=== PATIENT | male | born 1955 | race Two or more races ===

== ENCOUNTER 2021-03-31 09:50 | Emergency (ER) | payer OTHER ==
[~2021-03-31] VITALS: Ht 172.7 cm; Wt 86.2 kg
--- NOTE | 2021-03-31 10:11 | NUR ---
BI SELF LT ARM LIMITED ROM AND PAIN OF 910 S/P FALLING ON LT ARM 03/12 DIDNT SEE DOCTOR NOR XRAY DONE. RATES PAIN 03/01. NO APPARENT DEFORMITY NOTED. DENIES NUMBNESS/TINGLING IN THE EXTREMITY. WILL CONTINUE TO MONITOR THE PATIENT.
--- NOTE | 2021-03-31 10:12 | NUR ---
DR GERARD AT THE BEDSIDE
--- NOTE | 2021-03-31 10:18 | NUR ---
X-RAY TECH AT THE BEDSIDE
[2021-03-31] MEDS ORDERED: HYDR-3980 PO (10:40)
--- NOTE | 2021-03-31 11:01 | NUR ---
Patient discharged to home in stable condition. Written and verbal after care instructions given. Patient verbalizes understanding of instruction.
[2021-03-31 11:02] VITALS: BP 129/78
== END 2021-03-31 11:02 | disposition home or self-care (01) ==
LOC: ER 09:53
DX: S52.592A Other fractures of lower end of left radius, initial encounter for closed fracture (principal); I10 Essential (primary) hypertension; E78.00 Pure hypercholesterolemia, unspecified; E11.9 Type 2 diabetes mellitus without complications; W18.39XA Other fall on same level, initial encounter; Y93.89 Activity, other specified; Y92.89 Other specified places as the place of occurrence of the external cause; Y99.8 Other external cause status
CPT/HCPCS: 73110

== ENCOUNTER 2021-05-31 11:04 | Emergency (ER) | payer OTHER ==
[~2021-05-31] VITALS: Ht 172.7 cm; Wt 86.2 kg
[~2021-05-31 11:04] MED LIST: HYDR-3980 PO
[2021-05-31 11:31] VITALS: BP 153/86
[2021-05-31] MEDS ORDERED: HYDROCODONE/APAP 5/325MG TABLET PO ONE (12:00)
[2021-05-31] MEDS ORDERED: HYDROCODONE/APAP 5/325MG TABLET ONE (12:04)
--- NOTE | 2021-05-31 14:34 | NUR ---
Patient discharged to home in stable condition. Written and verbal after care instructions given. Patient verbalizes understanding of instruction.
== END 2021-05-31 14:34 | disposition home or self-care (01) ==
LOC: ER 12:30
DX: M25.532 Pain in left wrist (principal); I10 Essential (primary) hypertension; E11.9 Type 2 diabetes mellitus without complications; E78.00 Pure hypercholesterolemia, unspecified
CPT/HCPCS: 73110